=== PATIENT | female | born 1945 | race Caucasian/White ===

== ENCOUNTER 2016-06-18 13:52 | Observation (INO) | payer OTHER ==
--- NOTE | 2016-06-18 14:06 | EDPHY ---
H & P Time Seen by Provider: 06/18/16 14:04 HPI/ROS: CHIEF COMPLAINT: Chest heaviness HISTORY OF PRESENT ILLNESS: This 70-year-old woman had a complex left LAD stenting procedure last summer on November 12. She had an episode of chest heaviness about 2 weeks ago which lasted an hour and resolved. Today since she woke up this morning around 830 or 9 she had central chest heaviness associated with nausea and some shortness of breath with exertion which resolved after about an hour. She then went to [facility] with her daughter and the symptoms returned including shortness of breath with exertion and she presents to the emergency department. Currently her symptoms have resolved again. Symptoms are moderate and again worse with exertion. Did not radiate. REVIEW OF SYSTEMS: Eye: no change in vision ENT: no sore throat Cardiac: HPI Pulmonary: No cough or hemoptysis. Abdomen: no vomiting, diarrhea, abdominal pain, intermittent nausea over the last month. Musculoskeletal: no back pain Skin: no rash Neuro: Intermittent headaches over the past couple of months none presently. Constitutional: no fever : no urinary symptoms A comprehensive 10 point review of systems is otherwise negative aside from elements mentioned in the history of present illness. PAST MEDICAL HISTORY: Discharge summary dated 11/15/2015 personally reviewed by myself. Includes non-Q-wave myocardial infarction, percutaneous coronary intervention on 11/13/2015, hyperlipidemia, rheumatoid arthritis, hypertension. Social history: Family history of coronary disease. Nonsmoker. General Appearance: Alert and conversant, cooperative. Eyes: No scleral icterus. ENT, Mouth: Normal mucous membranes. Respiratory: Normal respiratory effort, breath sounds equal, lungs are clear to auscultation. Cardiovascular: Regular rate and rhythm. Gastrointestinal: Abdomen is soft and non tender. Neurological: Alert and oriented x3. Normally conversant. Face symmetric, normal movement and sensation in all extremities. Skin: Warm and dry, no rashes. Musculoskeletal: No peripheral edema and no joint swelling. No calf tenderness. Psychiatric: Not agitated. Emergency Department course/MDM: Patient took her Effient and aspirin already today so none is given in the emergency department. EKG does not show dynamic changes. Plan for chest x-ray, troponin, consultation with Dr. Landin her photoengraving apprentice. 1510: discussed with Mushtaq; troponin negative. 1520: Discussed with patient, no current chest heaviness, plan to admit at at Dr. Landin recommendation discussed with patient and consented. Smoking Status: Never smoked Constitutional: Initial Vital Signs Temperature (C) 36.4 C 06/18/16 13:58 Heart Rate 76 06/18/16 13:58 Respiratory Rate 16 06/18/16 13:58 Blood Pressure 134/89 H 06/18/16 13:58 O2 Sat (%) 97 06/18/16 13:58 O2 Delivery Mode Room Air Allergies/Adverse Reactions: No Known Allergies Allergy (Verified 06/18/16 14:09) Home Medications: Medication Instructions Recorded Aspirin [Aspirin 81mg (*)] 81 mg PO DAILY 11/13/15 Calcium [HI-RAMSES] 500 mg PO BID 11/13/15 Escitalopram Oxalate [Lexapro 10 10 mg PO DAILY 11/13/15 MG] Folic Acid [Folic Acid 1 MG (*)] 1 mg PO BID 11/13/15 Methotrexate Sodium [Rheumatrex] 20 mg PO SA 11/13/15 Nitroglycerin [Nitrostat 0.4 mg 0.4 mg SL Q5M PRN 11/13/15 (*)] Vit C/Vit E/Lutein/Min/[place]-3 1 each PO BID 11/13/15 [Ocuvite Softgel] predniSONE 5 mg PO DAILY PRN 11/13/15 valACYclovir [Valtrex (*)] 1,000 mg PO DAILY PRN 11/13/15 Atorvastatin Calcium [Lipitor 40 40 mg PO DAILY #0 tab 11/14/15 mg (*)] Prasugrel HCl [Effient 10mg (*)] 10 mg PO DAILY #0 tab 11/14/15 Lisinopril 10 mg PO DAILY #30 tablet 11/15/15 Metoprolol Succinate Xr [Toprol Xl 100 mg PO DAILY #30 tab.sr 11/15/15 100 mg (*)] Medical Decision Making - Diagnostics EKG Interpretation: 12-lead EKG interpreted by me; official reading is in trace master. My interpretation is sinus rhythm, no ischemic changes, normal. Imaging: Chest x-ray viewed by myself is normal. No cardiomegaly or CHF or pulmonary infiltrates. Differential Diagnosis: Differential diagnosis considered for chest pain including but not limited to myocardial ischemia, aortic dissection, pericarditis, pulmonary embolus, chest wall pain, pleural inflammation and pulmonary infectious causes. Consult/Admit Bed Type: [place] [id number] - Data Points Laboratory Results: Laboratory Results 06/18/16 14:15 06/18/16 14:15 06/18/16 06/18/16 14:15 14:15 WBC 7.01 10^3/uL 10^3/uL (3.80-9.50) RBC 4.40 10^6/uL 10^6/uL (4.18-5.33) Hgb 13.6 g/dL g/dL (12.6-16.3) Hct 40.8 % % (38.0-47.0) MCV 92.7 fL fL (81.5-99.8) MCH 30.9 pg pg (27.9-34.1) MCHC 33.3 g/dL g/dL (32.4-36.7) RDW 14.8 % % (11.5-15.2) Plt Count 353 10^3/uL 10^3/uL (150-400) MPV 9.8 fL fL (8.7-11.7) Neut % (Auto) 61.6 % % (39.3-74.2) Lymph % (Auto) 26.8 % % (15.0-45.0) [place] % (Auto) 8.7 % % (4.5-13.0) Eos % (Auto) 1.9 % % (0.6-7.6) Baso % (Auto) 0.7 % % (0.3-1.7) Nucleat RBC Rel Count 0.0 % % (0.0-0.2) Absolute Neuts (auto) 4.32 10^3/uL 10^3/uL (1.70-6.50) Absolute Lymphs (auto) 1.88 10^3/uL 10^3/uL (1.00-3.00) Absolute Monos (auto) 0.61 10^3/uL 10^3/uL (0.30-0.80) Absolute Eos (auto) 0.13 10^3/uL 10^3/uL (0.03-0.40) Absolute Basos (auto) 0.05 10^3/uL 10^3/uL (0.02-0.10) Absolute Nucleated RBC 0.00 10^3/uL 10^3/uL (0-0.01) Immature Gran % 0.3 % % (0.0-1.1) Immature Gran # 0.02 10^3/uL 10^3/uL (0.00-0.10) Sodium 141 mEq/L mEq/L (134-144) Potassium 4.2 mEq/L mEq/L (3.5-5.2) Chloride 102 mEq/L mEq/L (97-110) Carbon Dioxide 26 mEq/l mEq/l (22-31) Anion Gap 13 mEq/L mEq/L (8-16) BUN 13 mg/dL mg/dL (7-23) Creatinine 0.7 mg/dL mg/dL (0.6-1.0) Estimated GFR > 60 Glucose 93 mg/dL mg/dL (70-100) Calcium 10.0 mg/dL mg/dL (8.5-10.4) Troponin I < 0.012 ng/mL ng/mL (0-0.034) Departure - Departure Disposition: [facility] Inpatient Acute Clinical Impression: Chest pain Qualifiers: Chest pain type: unspecified Qualified Code(s): R07.9 - Chest pain, unspecified Condition: Good Referrals: Francine Snow MD [Primary Care Provider] - As per Instructions
--- NOTE | 2016-06-18 14:13 | CPEKG ---
Heart Rate: 56 RR Interval: 1071 P-R Interval: 144 QRSD Interval: 78 QT Interval: 408 QTC Interval: 394 P [place]: 56 QRS [place]: 0 T Wave [place]: 43 EKG Severity - NORMAL ECG - EKG Impression: SINUS RHYTHM Electronically Signed By: Elliott Hernandez 18-Jun-2016 14:20:39
[2016-06-18 14:27] LABS: % IMMATURE GRANULYOCYTES 0.3 % (0.0-1.1); ABSOLUTE IMMATURE GRANULOCYTES 0.02 10^3/uL (0.00-0.10); ADD DIFF? NO; ADD MORPH? NO; ADD SCAN? NO; ATYPICAL LYMPHOCYTE FLAG 0 (0-99); FRAGMENT RBC FLAG 0 (0-99); HEMATOCRIT 40.8 % (38.0-47.0); HEMOGLOBIN 13.6 g/dL (12.6-16.3); LEFT SHIFT FLG 0 (0-99); LIPEMIA HEMOLYSIS FLAG 80 (0-99); MEAN CELL HEMOGLOBIN 30.9 pg (27.9-34.1); MEAN CELL HEMOGLOBIN CONCENTR. 33.3 g/dL (32.4-36.7); MEAN CELL VOLUME 92.7 fL (81.5-99.8); MEAN PLATELET VOLUME 9.8 fL (8.7-11.7); PLATELET CLUMPS FLAG 0 (0-99); PLATELET COUNT 353 10^3/uL (150-400); RED CELL DISTRIBUTION WIDTH 14.8 % (11.5-15.2)
[2016-06-18 14:58] LABS: ANION GAP 13 mEq/L (8-16); CARBON DIOXIDE 26 mEq/l (22-31); CHLORIDE 102 mEq/L (97-110); CREATININE 0.7 mg/dL (0.6-1.0); GLOMERULAR FILTRATION RATE > 60; GLUCOSE 93 mg/dL (70-100); POTASSIUM 4.2 mEq/L (3.5-5.2); SODIUM 141 mEq/L (134-144)
[2016-06-18 15:09] LABS: TROPONIN I < 0.012 ng/mL (0-0.034)
[2016-06-18] MEDS ORDERED: ONDANSETRON DISINTEGRATING 4 MG TAB PO PRN (16:01)
[2016-06-18] MEDS ORDERED: ACETAMINOPHEN 325 MG TAB PO PRN (16:01)
[2016-06-18] MEDS ORDERED: NITROGLYCERIN 0.4 MG BTL SL PRN (16:01)
[2016-06-18] MEDS ORDERED: valACYclovir 500 MG TAB PO PRN (16:05)
--- NOTE | 2016-06-18 16:12 | PDGENHP ---
History and Physical - Chief Complaint Acute chest pain - History of Present Illness Primary care provider: Dr. Snow Primary auto electrical technician: Dr. Landin Primary director prison: Dr. Soriano HPI: 70-year-old female presenting with acute chest pain characterized as chest heaviness located in the central chest with onset of symptoms approximately 2 weeks ago and duration intermittent thereafter. She reports that the initial duration was approximately 1 hour and the symptoms were alleviated with rest. She reports that on the day of presentation they occurred twice and were associated with some nausea shortness of breath. They were exacerbated by exertion and alleviated with rest. She has been adherent to all of her home medications and still taking aspirin and prasugrel. She reports that her exercise tolerance has not recently been reduced but she also endorses that she has not been particularly physically active. She has recently had airline travel she denies any chest trauma. The character of the symptoms is similar to those experienced in October of 2015 when she experienced myocardial infarction but she reports they are of lesser severity. History Information - Allergies/Home Medication List Allergies/Adverse Reactions: No Known Allergies Allergy (Verified 06/18/16 14:09) Home Medications: Aspirin [Aspirin 81mg (*)] 81 mg PO DAILY 11/13/15 [Last Taken 06/18/16 08:00] Calcium [HI-RAMSES] 500 mg PO BID 11/13/15 [Last Taken 06/18/16 08:00] Escitalopram Oxalate [Lexapro 10 MG] 10 mg PO DAILY 11/13/15 [Last Taken 08:00] Folic Acid [Folic Acid 1 MG (*)] 1 mg PO BID 11/13/15 [Last Taken 06/18/16 08:00 ] Methotrexate Sodium [Rheumatrex] 20 mg PO SA 11/13/15 [Last Taken 06/13/16] Nitroglycerin [Nitrostat 0.4 mg (*)] 0.4 mg SL Q5M PRN 11/13/15 [Last Taken Unknown] Vit C/Vit E/Lutein/Min/[place]-3 [Ocuvite Softgel] 1 each PO BID 11/13/15 [Last Taken 06/18/16 08:00] predniSONE 5 mg PO DAILY PRN 11/13/15 [Last Taken 08/23/15] valACYclovir [Valtrex (*)] 1,000 mg PO DAILY PRN 11/13/15 [Last Taken Unknown] Losartan Potassium [Cozaar 25 mg (*)] 25 mg PO DAILY 06/18/16 [Last Taken 08:00] Multivitamins [Multivitamin (*)] 1 each PO DAILY 06/18/16 [Last Taken 06/18/16] I have personally reviewed and updated: family history, medical history, social history, surgical history - Past Medical History coronary artery disease (With non-Q-wave myocardial infarction in October 2015, stents placed to the diagonal and LAD), hypertension, hyperlipidemia Additional medical history: Rheumatoid arthritis on methotrexate and intermittently as needed prednisone - Surgical History Reports: no pertinent surgical hx - Family History Additional family history: Patient's grandson has recently had a GI illness and she has had extensive contact with him - Social History Smoking Status: Never smoked Alcohol Use: None Drug Use: None Additional social history: Ambulatory, does not physically exert herself Review of Systems ROS: 10pt was reviewed & negative except for what was stated in HPI & below Cardiac: Reports: chest pain Respiratory: Reports: shortness of breath Gastrointestinal: Reports: nausea Physical Exam Temp Pulse Resp BP Pulse Ox 36.4 C 76 16 134/89 H 97 06/18/16 13:58 06/18/16 13:58 06/18/16 13:58 06/18/16 13:58 06/18/16 13:58 Constitutional: no apparent distress, appears nourished, not in pain Eyes: PERRL, anicteric sclera, EOMI Ears, Nose, Mouth, Throat: moist mucous membranes, hearing normal, ears appear normal, no oral mucosal ulcers Cardiovascular: regular rate and rhythym, no murmur, rub, or gallop, No edema Respiratory: no respiratory distress, no rales or rhonchi, clear to auscultation Gastrointestinal: normoactive bowel sounds, soft, non-tender abdomen, no palpable masses Genitourinary: no bladder fullness, no bladder tenderness Skin: other (Non raised erythema on her back which is blanchable, not indurated or tender) Musculoskeletal: other (Full range of motion left shoulder without any pain, no tenderness over the sub AC or rotator cuff area, no tenderness to palpation over the left pectoralis muscle) Neurologic: AAOx3, sensation intact bilaterally Psychiatric: interacting appropriately, not anxious, not encephalopathic, thought process linear Lab Data & Imaging Review 06/18/16 14:15 06/18/16 14:15 WBC 7.01 10^3/uL (3.80-9.50) 06/18/16 14:15 RBC 4.40 10^6/uL (4.18-5.33) 06/18/16 14:15 Hgb 13.6 g/dL (12.6-16.3) 06/18/16 14:15 Hct 40.8 % (38.0-47.0) 06/18/16 14:15 MCV 92.7 fL (81.5-99.8) 06/18/16 14:15 MCH 30.9 pg (27.9-34.1) 06/18/16 14:15 MCHC 33.3 g/dL (32.4-36.7) 06/18/16 14:15 RDW 14.8 % (11.5-15.2) 06/18/16 14:15 Plt Count 353 10^3/uL (150-400) 06/18/16 14:15 MPV 9.8 fL (8.7-11.7) 06/18/16 14:15 Neut % (Auto) 61.6 % (39.3-74.2) 06/18/16 14:15 Lymph % (Auto) 26.8 % (15.0-45.0) 06/18/16 14:15 [place] % (Auto) 8.7 % (4.5-13.0) 06/18/16 14:15 Eos % (Auto) 1.9 % (0.6-7.6) 06/18/16 14:15 Baso % (Auto) 0.7 % (0.3-1.7) 06/18/16 14:15 Nucleat RBC Rel Count 0.0 % (0.0-0.2) 06/18/16 14:15 Absolute Neuts (auto) 4.32 10^3/uL (1.70-6.50) 06/18/16 14:15 Absolute Lymphs (auto) 1.88 10^3/uL (1.00-3.00) 06/18/16 14:15 Absolute Monos (auto) 0.61 10^3/uL (0.30-0.80) 06/18/16 14:15 Absolute Eos (auto) 0.13 10^3/uL (0.03-0.40) 06/18/16 14:15 Absolute Basos (auto) 0.05 10^3/uL (0.02-0.10) 06/18/16 14:15 Absolute Nucleated RBC 0.00 10^3/uL (0-0.01) 06/18/16 14:15 Immature Gran % 0.3 % (0.0-1.1) 06/18/16 14:15 Immature Gran # 0.02 10^3/uL (0.00-0.10) 06/18/16 14:15 Sodium 141 mEq/L (134-144) 06/18/16 14:15 Potassium 4.2 mEq/L (3.5-5.2) 06/18/16 14:15 Chloride 102 mEq/L (97-110) 06/18/16 14:15 Carbon Dioxide 26 mEq/l (22-31) 06/18/16 14:15 Anion Gap 13 mEq/L (8-16) 06/18/16 14:15 BUN 13 mg/dL (7-23) 06/18/16 14:15 Creatinine 0.7 mg/dL (0.6-1.0) 06/18/16 14:15 Estimated GFR > 60 06/18/16 14:15 Glucose 93 mg/dL (70-100) 06/18/16 14:15 Calcium 10.0 mg/dL (8.5-10.4) 06/18/16 14:15 Troponin I < 0.012 ng/mL (0-0.034) 06/18/16 14:15 Visualized and Interpreted Chest x-ray results: Yes Chest X-Ray results: no infiltrate Visualized and Interpreted EKG results: Yes EKG Interpretation: Positive for: other (Q-wave in lead 3, normal sinus rhythm) Assessment & Plan Assessment: 70-year-old female presents with acute chest pain in the setting of known coronary artery disease Plan: 1. Chest pain. Acute, new problem this provider, further workup indicated. Potential etiologies include acute coronary syndrome versus pulmonary embolism versus atypical cause. Given patient's significant history for coronary artery disease, further cardiac risk stratification is indicated. -reviewed outside records including 11/13/2015 cardiac catheterization demonstrating 4 drug-eluting stents placed in the LAD and diagonal with ejection fraction of 50% and approximately 50% stenosis in the RCA with minimal stenosis in the left circumflex -cycle cardiac enzymes -monitor on telemetry -check D-dimer -continue aspirin, statin, prasugrel, beta-cathryn -if she experiences recurrence of chest discomfort or escalating severity, utilize sublingual nitroglycerin and morphine -if cardiac enzymes remain negative, plan on EKG treadmill stress test in a.m. -discussed with Dr. Hernandez, he reports to me that he has consulted with Dr. Landin and he will consult on the patient and further direct risk stratification 2. Coronary artery disease. Chronic, continue patient's home medications, places patient at significantly high risk for acute coronary syndrome given her known RCA and small vessel disease 3. Hypertension. Chronic, continue patient's home medications 4. Rheumatoid arthritis. No evidence of acute flare, continue methotrexate once weekly, Tylenol as needed for pain, does not utilize nonsteroidal anti- inflammatory medications Diet. Cardiac diet, NPO in a.m. Prophylaxis. Moderate risk patient, Lovenox 40 Code. Full Disposition. Anticipated discharge is 06/19/2016, pending further workup as outlined above.
--- NOTE | 2016-06-18 17:22 | PDCARCONS ---
Cardiology Consult Reason for Consult: Chest pain Chief Complaint: Chest pain Requesting Physician: Dr. Dietz History of Present Illness: 70 year-old female known to our practice for history of severe exertional intolerance as anginal equivalent, CAD s/p LAD/diag bifurcation stenting in October 2015, hyperlipidemia, rheumatoid arthritis who called our office today complaining of chest discomfort reminiscent of prior anginal symptoms. Her symptoms have intermittent over the past 4-6 weeks while living in [place]; however she woke up this morning with moderate intensity chest tightness worse usual. It was accompanied by mild radiation to the back in a through-and- through pattern. Her symptoms gradually subsided but she continued to feel overall poor due to fatigue and otherwise vague symptoms. She went to [facility] with her daughter around noon and while walking around she became more short of breath and her chest tightness returned. In addition, over the past 4-6 weeks she has had intermittent nausea she associates with symptoms leading up to her stents this past October. She denies any presyncope, syncope, or diaphoresis. She returned from [place] on 06/09/16 by plane and denies any calf pain, shortness of breath, or racing heart beats. She states that her BP has been well- controlled on her home cuff and with recent doctor's visits. She continues to have mild chest tightness while resting in the ED. She complains of headache as well. BP is 179/94 mmHg. Her EKG shows sinus bradycardia at 56 bpm, normal QRS axis and intervals, no acute ischemic changes. CBC, chemistry panel, D-dimer, and initial troponin are all normal. We are asked by hospitalist service to consult on Mrs. Hazel and advise on further risk stratification. History Information - Allergies/Home Medication List Allergies/Adverse Reactions: No Known Allergies Allergy (Verified 06/18/16 14:09) Home Medications: Aspirin [Aspirin 81mg (*)] 81 mg PO DAILY 11/13/15 [Last Taken 06/18/16 08:00] Calcium [HI-RAMSES] 500 mg PO BID 11/13/15 [Last Taken 06/18/16 08:00] Escitalopram Oxalate [Lexapro 10 MG] 10 mg PO DAILY 11/13/15 [Last Taken 08:00] Folic Acid [Folic Acid 1 MG (*)] 1 mg PO BID 07/20/16 [Last Taken 06/18/16 08:00 ] Methotrexate Sodium [Rheumatrex] 20 mg PO SA 11/13/15 [Last Taken 06/13/16] Nitroglycerin [Nitrostat 0.4 mg (*)] 0.4 mg SL Q5M PRN 11/13/15 [Last Taken Unknown] Vit C/Vit E/Lutein/Min/[place]-3 [Ocuvite Softgel] 1 each PO BID 11/13/15 [Last Taken 06/18/16 08:00] predniSONE 5 mg PO DAILY PRN 11/13/15 [Last Taken 08/23/15] valACYclovir [Valtrex (*)] 1,000 mg PO DAILY PRN 11/13/15 [Last Taken Unknown] Losartan Potassium [Cozaar 25 mg (*)] 25 mg PO DAILY 06/18/16 [Last Taken 08:00] Multivitamins [Multivitamin (*)] 1 each PO DAILY 06/18/16 [Last Taken 06/18/16] - Social History Smoking Status: Never smoked Alcohol Use: None Drug Use: None Cardiac History - Cardiac History Past Cardiac History: CAD, PCI Cardiac Risk Factors: hypertension (>140/90), lipidemia, age > 65 Physical Exam Temp Pulse Resp BP Pulse Ox 36.6 C 59 L 16 179/84 H 97 06/18/16 16:15 06/18/16 16:15 06/18/16 16:15 06/18/16 16:15 06/18/16 16:15 Constitutional: no apparent distress, appears nourished, not in pain Cardiovascular: regular rate and rhythym, no murmur, rub, or gallop, other (+S4) , No systolic murmur, No edema Respiratory: no respiratory distress, no rales or rhonchi, clear to auscultation Gastrointestinal: normoactive bowel sounds, soft, non-tender abdomen, no palpable masses Skin: warm, normal color, no rashes or abrasions, no fluctuance, no induration, No mottled Neurologic: AAOx3, sensation intact bilaterally, weakness Psychiatric: interacting appropriately, not anxious, not encephalopathic, thought process linear Lab and Imaging 06/18/16 14:15 06/18/16 14:15 WBC 7.01 10^3/uL (3.80-9.50) 06/18/16 14:15 RBC 4.40 10^6/uL (4.18-5.33) 06/18/16 14:15 Hgb 13.6 g/dL (12.6-16.3) 06/18/16 14:15 Hct 40.8 % (38.0-47.0) 06/18/16 14:15 MCV 92.7 fL (81.5-99.8) 06/18/16 14:15 MCH 30.9 pg (27.9-34.1) 06/18/16 14:15 MCHC 33.3 g/dL (32.4-36.7) 06/18/16 14:15 RDW 14.8 % (11.5-15.2) 06/18/16 14:15 Plt Count 353 10^3/uL (150-400) 06/18/16 14:15 MPV 9.8 fL (8.7-11.7) 06/18/16 14:15 Neut % (Auto) 61.6 % (39.3-74.2) 06/18/16 14:15 Lymph % (Auto) 26.8 % (15.0-45.0) 06/18/16 14:15 [place] % (Auto) 8.7 % (4.5-13.0) 06/18/16 14:15 Eos % (Auto) 1.9 % (0.6-7.6) 06/18/16 14:15 Baso % (Auto) 0.7 % (0.3-1.7) 06/18/16 14:15 Nucleat RBC Rel Count 0.0 % (0.0-0.2) 06/18/16 14:15 Absolute Neuts (auto) 4.32 10^3/uL (1.70-6.50) 06/18/16 14:15 Absolute Lymphs (auto) 1.88 10^3/uL (1.00-3.00) 06/18/16 14:15 Absolute Monos (auto) 0.61 10^3/uL (0.30-0.80) 06/18/16 14:15 Absolute Eos (auto) 0.13 10^3/uL (0.03-0.40) 06/18/16 14:15 Absolute Basos (auto) 0.05 10^3/uL (0.02-0.10) 06/18/16 14:15 Absolute Nucleated RBC 0.00 10^3/uL (0-0.01) 06/18/16 14:15 Immature Gran % 0.3 % (0.0-1.1) 06/18/16 14:15 Immature Gran # 0.02 10^3/uL (0.00-0.10) 06/18/16 14:15 D-Dimer 0.38 ug/mLFEU (0.00-0.50) 06/18/16 14:15 Sodium 141 mEq/L (134-144) 06/18/16 14:15 Potassium 4.2 mEq/L (3.5-5.2) 06/18/16 14:15 Chloride 102 mEq/L (97-110) 06/18/16 14:15 Carbon Dioxide 26 mEq/l (22-31) 06/18/16 14:15 Anion Gap 13 mEq/L (8-16) 06/18/16 14:15 BUN 13 mg/dL (7-23) 06/18/16 14:15 Creatinine 0.7 mg/dL (0.6-1.0) 06/18/16 14:15 Estimated GFR > 60 06/18/16 14:15 Glucose 93 mg/dL (70-100) 06/18/16 14:15 Calcium 10.0 mg/dL (8.5-10.4) 06/18/16 14:15 Troponin I < 0.012 ng/mL (0-0.034) 06/18/16 14:15 A/P Assessment: 1. High suspicion for unstable angina, class III-IV. Symptoms are consistent with prior anginal symptoms leading up PCI in October 2015. 2. CAD s/p DESx4 in LAD and diag by [place] technique. She remains on DAPT with aspirin and Effient. She is an ultrarapid Plavix metabolizer. 3. Hyperlipidemia. Well-controlled on atorvastatin 40 mg/d. 4. Rheumatoid arthritis treated w/ once-weekly methotrexate. 5. Uncontrolled HTN. Normally well-controlled on current med regimen. 6. History of KAMLESH cough. Plan: 1. Keep NPO after midnight. 2. Continue to cycle serial cardiac enzymes and 12 lead EKGs. 3. DC nuclear stress test. Due to symptoms mimicking prior anginal symptoms there is high suspicion for stent restenosis vs. de mehnaz stenotic lesion in which case coronary angiography is recommended. 4. Left heart catheterization tomorrow. Dr. Landin to arrange with laboratory associate. 5. Start amlodipine 5 mg, first dose now.
[2016-06-18] MEDS: amLODIPine BESYLATE 5 MG TAB PO SCH (18:58)
[2016-06-18] MEDS ORDERED: VIT E PO SCH (21:00)
[2016-06-18] MEDS ORDERED: VIT C PO SCH (21:00)
[2016-06-18] MEDS ORDERED: LUTEIN PO SCH (21:00)
[2016-06-18] MEDS ORDERED: OMEGA PO SCH (21:00)
[2016-06-18] MEDS: CALCIUM CARBONATE 500 MG TAB PO SCH (21:34)
[2016-06-18] MEDS: FOLIC ACID 1 MG TAB PO SCH (21:35)
[2016-06-18] MEDS: ENOXAPARIN 40 MG/0.4 ML SYR SC SCH (21:59)
[2016-06-19 06:35] LABS: % IMMATURE GRANULYOCYTES 0.1 % (0.0-1.1); ABSOLUTE IMMATURE GRANULOCYTES 0.01 10^3/uL (0.00-0.10); ADD DIFF? NO; ADD MORPH? NO; ADD SCAN? NO; ATYPICAL LYMPHOCYTE FLAG 10 (0-99); FRAGMENT RBC FLAG 0 (0-99); HEMATOCRIT 37.7 % (38.0-47.0); HEMOGLOBIN 12.6 g/dL (12.6-16.3); LEFT SHIFT FLG 0 (0-99); LIPEMIA HEMOLYSIS FLAG 80 (0-99); MEAN CELL HEMOGLOBIN 30.9 pg (27.9-34.1); MEAN CELL HEMOGLOBIN CONCENTR. 33.4 g/dL (32.4-36.7); MEAN CELL VOLUME 92.4 fL (81.5-99.8); MEAN PLATELET VOLUME 9.7 fL (8.7-11.7); PLATELET CLUMPS FLAG 0 (0-99); PLATELET COUNT 303 10^3/uL (150-400); RED BLOOD CELL COUNT 4.08 10^6/uL (4.18-5.33); RED CELL DISTRIBUTION WIDTH 14.9 % (11.5-15.2)
[2016-06-19 06:38] LABS: APTT 27.9 SEC (23.0-38.0); INR 0.99 (0.83-1.16)
[2016-06-19] MEDS ORDERED: ASPIRIN EC 325 MG TAB PO ONE (07:00)
[2016-06-19] MEDS ORDERED: diphenhydrAMINE 25 MG CAP PO ONE (07:00)
[2016-06-19] MEDS ORDERED: TEMAZEPAM 15 MG CAP PO PRN (07:00)
[2016-06-19] MEDS ORDERED: DIAZEPAM 5 MG TAB PO ONE (07:00)
[2016-06-19] MEDS ORDERED: NITROGLYCERIN 0.4 MG BTL SL PRN (07:00)
[2016-06-19] MEDS ORDERED: ACETAMINOPHEN 325 MG TAB PO PRN (07:00)
[2016-06-19 07:11] LABS: ALANINE AMINOTRANSFERASE 37 IU/L (9-52); ALKALINE PHOSPHATASE 70 IU/L (38-126); ANION GAP 8 mEq/L (8-16); ASPARTATE AMINOTRANSFERASE 30 IU/L (14-46); BILIRUBIN,TOTAL 0.7 mg/dL (0.1-1.4); CALCIUM 9.7 mg/dL (8.5-10.4); CARBON DIOXIDE 27 mEq/l (22-31); CHLORIDE 104 mEq/L (97-110); CREATININE 0.7 mg/dL (0.6-1.0); GLOMERULAR FILTRATION RATE > 60; GLUCOSE 95 mg/dL (70-100); POTASSIUM 4.4 mEq/L (3.5-5.2); SODIUM 139 mEq/L (134-144); TOTAL PROTEIN 7.3 g/dL (6.3-8.2)
[2016-06-19 07:22] LABS: TROPONIN I 0.035 ng/mL (0-0.034)
[2016-06-19 07:38] VITALS: RESP 15
[2016-06-19] MEDS ORDERED: PRESERVISION AREDS2 FORMULA EYE VIT 1 EACH PO SCH (08:00)
[2016-06-19] MEDS ORDERED: MULTIVITAMINS 1 EACH TAB PO SCH (09:00)
[2016-06-19] MEDS ORDERED: METOPROLOL SUCCINATE XR 100 MG TAB PO SCH (09:00)
[2016-06-19] MEDS ORDERED: ESCITALOPRAM OXALATE 10 MG TAB PO SCH (09:00)
[2016-06-19] MEDS ORDERED: ATORVASTATIN CALCIUM 40 MG TAB PO SCH (09:00)
[2016-06-19] MEDS ORDERED: PRASUGREL HCL 10 MG TAB PO SCH (09:00)
[2016-06-19] MEDS ORDERED: LOSARTAN POTASSIUM 25 MG TAB PO SCH (09:00)
[2016-06-19] MEDS ORDERED: ASPIRIN 81 MG CHEWABLE TAB PO SCH (09:00)
[2016-06-19 11:24] VITALS: BP 132/77; PULSE 66; TEMP 97.3; O2SAT 95
[2016-06-19] MEDS: amLODIPine BESYLATE 5 MG TAB PO SCH (11:26)
[2016-06-19] MEDS: CALCIUM CARBONATE 500 MG TAB PO SCH (11:26)
[2016-06-19] MEDS: ENOXAPARIN 40 MG/0.4 ML SYR SC SCH (11:27)
[2016-06-19] MEDS: FOLIC ACID 1 MG TAB PO SCH (11:27)
[2016-06-19] MEDS ORDERED: LIDOCAINE 1% 30 ML SDV ONE (13:43)
[2016-06-19] MEDS ORDERED: fentaNYL 100 MCG/2 ML INJ ONE (13:44)
[2016-06-19] MEDS ORDERED: MIDAZOLAM 2 MG/2 ML VIAL ONE (13:44)
[2016-06-19] MEDS ORDERED: VERAPAMIL 5 MG/2 ML VIAL ONE (13:44)
[2016-06-19] MEDS ORDERED: HEPARIN 10,000 UNIT/10 ML MDV ONE (13:44)
[2016-06-19] MEDS ORDERED: IOPAMIDOL (ISOVUE-370) 150 ML BTL IV ONE (13:45)
--- NOTE | 2016-06-19 14:22 | SUROPNOTE ---
[facility] Operative Report - Surgery Date of Procedure: 06/19/16 Indication: This patient is a 70 year old woman, with known coronary artery disease s/p LAD/diagonal bifurcation stenting in October 2015, hyperlipidemia, and rheumatoid arthritis, presenting with 4-6 weeks of intermittent chest tightness , similar to her previous anginal symptoms. It is associated with fatigue and nausea. She was admitted to the hospital yesterday with resting chest discomfort in the emergency department. No stress testing was performed secondary to resting chest discomfort. Left heart catheterization indicated secondary to [place] cardiovascular class IV. Procedures performed: 1. Left heart catheterization with left ventricular and selective coronary angiography. Description of procedure: Description, risks, benefits and alternatives were discussed in detail. Informed consent was obtained. The patient was brought to the catheterization laboratory where a timeout was performed. The right wrist was sterilely prepped and draped. 2% lidocaine utilized for local anesthetic. A 5/6-Czech slender hemostatic sheath placed right radial artery utilizing micropuncture technique. Intraarterial verapamil and intravenous heparin was administered. Diagnostic coronary angiography performed with 5-Czech, Lottie left-3.5 and Lottie right -4 catheter. All catheters were passed over a 0.035 guidewire. Pigtail catheter was then utilized for left heart catheterization and left ventricular angiography. Arterial sheath was removed and TR band was placed. Findings: 1. Hemodynamics: Aortic pressure 115/60, mean of 79, left ventricular pressure 126/5/21 end-diastolic. There was no significant pull back gradient across the aortic valve. 2. Left ventricle: The left ventricle appears normal in size. Left ventricle is normal shape. Segmental wall motion is abnormal with very mild anterior hypokinesis and an ejection fraction of 55%. There are no filling defects or significant mitral regurgitation. The aortic root and ascending aorta appears normal, there is no dissection or aneurysm formation. 3. Coronary angiography: Left main: The left main is a moderately large bifurcating vessel. There is no evidence of coronary disease within the left main. 4. Left anterior descending: This is a moderately large vessel continuing around the apex, which gives rise to a proximal and mid diagonal branch. The first diagonal branch contains a widely patent proximal stent. The left anterior descending contains proximal and mid stents, which are widely patient. There is a septal branch in the mid LAD which is in "stent prison". 5. Circumflex: The circumflex gives rise to a large obtuse marginal branch. Minimal coronary artery disease. 6. Right coronary: This is a moderately large, dominant vessel with a larger posterior descending and a moderate multi-branching posterolateral. There is up to 50% right coronary stenosis near the crux, but no critical lesions. Overall Impression: 1. Non-obstructive coronary artery disease, with widely patent LAD and diagonal stents. 2. Very mild left ventricular anterior hypokinesis and an ejection fraction of 55%. 3. No cardiac source of chest discomfort identified. Plan: 1. Further workup for non-cardiac etiologies of chest discomfort. 2. Continue aggressive risk modification and high dose statin therapy. Portions of this report were documented by a medical reimbursement manager. I have reviewed this report and agree with the documentation. Report scribed for Dr. Ruben Landin. Report scribed by Loree Yi.
[2016-06-19] MEDS ORDERED: ATROPINE SULFATE 1 MG/10 ML SYR IVP PRN (15:33)
[2016-06-19] MEDS ORDERED: OXYCODONE/APAP 5/325 TAB PO PRN (15:33)
[2016-06-19] MEDS ORDERED: ONDANSETRON 4 MG/2 ML VIAL IVP PRN (15:33)
[2016-06-19] MEDS ORDERED: HYDROCODONE/APAP 5/325 TAB PO PRN (15:33)
--- NOTE | 2016-06-19 16:04 | HOSPPROG ---
Hospitalist Progress Note Assessment/Plan: 70 yo f a cad here w cp ;cath w patent stents home today see dc summary Subjective: neg cath Objective: Vital Signs Temp Pulse Resp BP Pulse Ox 36.3 C 66 15 132/77 H 95 06/19/16 11:23 06/19/16 11:23 06/19/16 11:23 06/19/16 11:23 06/19/16 11:23 Laboratory Results 06/19/16 06:05 06/19/16 06:05 PT 13.0 SEC (12.0-15.0) 06/19/16 06:05 INR 0.99 (0.83-1.16) 06/19/16 06:05 - Physical Exam Constitutional: no apparent distress, appears nourished Eyes: PERRL, anicteric sclera Ears, Nose, Mouth, Throat: moist mucous membranes, hearing normal Cardiovascular: regular rate and rhythym, no murmur, rub, or gallop Respiratory: no respiratory distress, no rales or rhonchi Gastrointestinal: normoactive bowel sounds, soft, non-tender abdomen Genitourinary: No mina in urethra Skin: warm, normal color Musculoskeletal: full muscle strength Neurologic: AAOx3 ICD10 Worksheet Patient Problems: Problems Problem Status Onset Chest pain Acute Acute coronary syndrome Acute Coronary arteriosclerosis after percutaneous transluminal coronary angioplasty ( PTCA) Acute Hyperlipidemia Acute Hypertension Acute
--- NOTE | 2016-06-19 17:34 | GDS ---
DISCHARGE DIAGNOSES: 1. Coronary disease. 2. Chest pain with positive troponin thought secondary to subendocardial ischemia from hypertension . 3. Hypertension. 4. Rheumatoid arthritis. HOSPITAL COURSE: Please see admission history and physical by Dr. Leander Dietz. Patient presented w ith chest pain. She had a negative D-dimer and nonischemic EKG. Her troponin became positive. Her instrument lens generator, Dr. Landin, took her to the seed laboratory assistant which showed patent stents, focal wall motion a bnormality in the anterior septum which is consistent with previous echocardiogram done in October. Her troponin did peak at 0.035. This is likely secondary as she was hypertensive while here. She h ad nonobstructive coronary disease, widely patent LAD, and diagonal stents. Her medication regimen includes a statin, an aspirin, a beta-cathryn, and Prasugrel. She is discharged home on unchanged m edication regimen. /[id number]/MODL
== END 2016-06-19 18:25 | disposition home or self-care (01) ==
LOC: F1N 18:17
PROVIDERS: ADMIT Internal Medicine; ATTEND Internal Medicine
PROC: B2111ZZ Fluoroscopy of Multiple Coronary Arteries using Low Osmolar Contrast (ICD-10-PCS; principal; 2016-06-18)
PROC: 4A023N7 Measurement of Cardiac Sampling and Pressure, Left Heart, Percutaneous Approach (ICD-10-PCS; principal; 2016-06-18)
PROC: B2151ZZ Fluoroscopy of Left Heart using Low Osmolar Contrast (ICD-10-PCS; principal; 2016-06-18)
DX: I25.89 Other forms of chronic ischemic heart disease (principal); I10 Essential (primary) hypertension; I25.10 Atherosclerotic heart disease of native coronary artery without angina pectoris; M06.9 Rheumatoid arthritis, unspecified; E78.5 Hyperlipidemia, unspecified; Z82.49 Family history of ischemic heart disease and other diseases of the circulatory system; Z95.5 Presence of coronary angioplasty implant and graft
CPT/HCPCS: 71020; 93005; 93458; G0378; J1644; J2250; J2405; J3010; Q9967

== ENCOUNTER 2016-12-30 12:20 | Day surgery (SDC) | payer OTHER ==
[2016-12-30] MEDS ORDERED: NITROGLYCERIN 0.4 MG BTL SL PRN (12:26)
[2016-12-30] MEDS ORDERED: diphenhydrAMINE 25 MG CAP PO ONE (12:26)
[2016-12-30] MEDS ORDERED: ACETAMINOPHEN 325 MG TAB PO PRN (12:26)
[2016-12-30] MEDS ORDERED: DIAZEPAM 5 MG TAB PO ONE (12:26)
[2016-12-30] MEDS ORDERED: FAMOTIDINE 20 MG TAB PO ONE (12:26)
[2016-12-30] MEDS ORDERED: ASPIRIN EC 325 MG TAB PO ONE (12:26)
[2016-12-30] MEDS ORDERED: TEMAZEPAM 15 MG CAP PO PRN (12:26)
--- NOTE | 2016-12-30 12:58 | CPEKG ---
Heart Rate: 58 RR Interval: 1034 P-R Interval: 160 QRSD Interval: 76 QT Interval: 428 QTC Interval: 421 P Marlin: 6 QRS Marlin: 71 T Wave Marlin: 35 EKG Severity - NORMAL ECG - EKG Impression: SINUS RHYTHM Electronically Signed By: Linda Gregory 30-Dec-2016 19:36:14
[2016-12-30 13:11] LABS: % IMMATURE GRANULYOCYTES 0.4 % (0.0-1.1); ABSOLUTE IMMATURE GRANULOCYTES 0.03 10^3/uL (0.00-0.10); ADD DIFF? NO; ADD MORPH? NO; ADD SCAN? NO; ATYPICAL LYMPHOCYTE FLAG 0 (0-99); FRAGMENT RBC FLAG 0 (0-99); HEMATOCRIT 40.5 % (38.0-47.0); HEMOGLOBIN 13.4 g/dL (12.6-16.3); LEFT SHIFT FLG 0 (0-99); LIPEMIA HEMOLYSIS FLAG 80 (0-99); MEAN CELL HEMOGLOBIN CONCENTR. 33.1 g/dL (32.4-36.7); MEAN CELL VOLUME 90.6 fL (81.5-99.8); MEAN PLATELET VOLUME 9.7 fL (8.7-11.7); PLATELET CLUMPS FLAG 30 (0-99); PLATELET COUNT 300 10^3/uL (150-400); RED BLOOD CELL COUNT 4.47 10^6/uL (4.18-5.33)
[2016-12-30 13:20] LABS: INR 0.96 (0.83-1.16); PROTIME(PATIENT) 12.7 SEC (12.0-15.0)
[2016-12-30 13:21] LABS: APTT 27.4 SEC (23.0-38.0)
[2016-12-30 13:27] LABS: ANION GAP 9 mEq/L (8-16); CALCIUM 9.9 mg/dL (8.5-10.4); CARBON DIOXIDE 24 mEq/l (22-31); CHLORIDE 104 mEq/L (97-110); CHOLESTEROL 161 mg/dL (140-220); CHOLESTEROL/HDL RATIO 2.27 RATIO (1.00-4.44); CREATININE 0.8 mg/dL (0.6-1.0); GLOMERULAR FILTRATION RATE > 60; GLUCOSE 87 mg/dL (70-100); HIGH DENSITY LIPOPROTEIN 71 mg/dL (40-85); LOW DENSITY LIPOPROTEIN 57 mg/dL (80-100); NON-HIGH DENSITY LIPOPROTEIN 90 mg/dL (90-129); POTASSIUM 4.2 mEq/L (3.5-5.2); SODIUM 137 mEq/L (134-144); TRIGLYCERIDE 167 mg/dL (35-135); VERY LOW DENSITY LIPOPROTEINS 33 mg/dL (8-25)
[2016-12-30] MEDS ORDERED: IOPAMIDOL (ISOVUE-370) 150 ML BTL IV ONE (13:29)
[2016-12-30] MEDS ORDERED: LIDOCAINE 1% 300 MG/30 ML SDV ONE (13:29)
[2016-12-30] MEDS ORDERED: fentaNYL 100 MCG/2 ML INJ ONE (13:29)
[2016-12-30] MEDS ORDERED: MIDAZOLAM 2 MG/2 ML VIAL ONE (13:29)
--- NOTE | 2016-12-30 13:41 | PDHPUP ---
History & Physical Update H&P update statement: This history and physical update is based on an assessment of the patient which was completed after admission or registration (within 24 hours), but prior to the surgery/procedure. H&P update: H&P reviewed & patient examined, no change in patient's condition since H&P completed
--- NOTE | 2016-12-30 13:42 | PDPROPOC ---
Sedation Plan of Care Sedation Plan of Care: vital signs stable, mental status noted, patient educated of risks, benefits, alternatives, patient can tolerate sedation ASA Classification: ASA 2 Planned drugs: fentanyl, midazolam Mallampati Score: Class 1 Mallampati Reference Image: Patient passed 3-3-2 rule?: Yes
[2016-12-30] MEDS ORDERED: ATROPINE SULFATE 1 MG/10 ML SYR IVP PRN (14:53)
[2016-12-30] MEDS ORDERED: ONDANSETRON 4 MG/2 ML VIAL IVP PRN (14:53)
--- NOTE | 2016-12-30 14:59 | PDDXCAT ---
Diagnostic Cath Note - . Date: 12/30/16 Controls Operator Molded Goods: Other (Christiano Roman MD) Indication: other (Anginal equivalent of nausea. ) - Procedure Access: right groin Procedure: left heart catheterization, coronary angiography - Materials Left Heart Cath size: 6F Left Heart Cath materials: standard multipack (JL4, JR4, pigtail) - Findings-Left Heart Catheterization LM: Normal LAD: Patent stent to the proximal and mid LAD, patent stent to D1 LCX: Normal RCA: Dominant. Normal. EDP: 16 mmHg LVEF: 60-65% Wall motion: Normal wall motion. Complications: none Estimated blood loss: <50ml Closure method: Angioseal Assessment: 1. Patent stent to the LAD and D1. 2. Normal LCX and RCA. 3. Normal LVEF 60-65% Plan: 1. Continue current medical therapy 2. Follow up in the office 2-3 weeks 3. consider referral to GI regarding symptoms of nausea Intervention: none Patient Problems: Problems Problem Status Onset Acute coronary syndrome Acute Chest pain Acute Coronary arteriosclerosis after percutaneous transluminal coronary angioplasty ( PTCA) Acute Hyperlipidemia Acute Hypertension Acute
== END 2016-12-30 18:11 | disposition home or self-care (01) ==
LOC: FCATH 12:20
PROVIDERS: ATTEND Internal Medicine Cardiovascular Disease
PROC: 4A023N7 Measurement of Cardiac Sampling and Pressure, Left Heart, Percutaneous Approach (ICD-10-PCS; principal; 2016-12-30)
PROC: B2111ZZ Fluoroscopy of Multiple Coronary Arteries using Low Osmolar Contrast (ICD-10-PCS; principal; 2016-12-30)
PROC: B2151ZZ Fluoroscopy of Left Heart using Low Osmolar Contrast (ICD-10-PCS; principal; 2016-12-30)
DX: R11.0 Nausea (principal); R94.39 Abnormal result of other cardiovascular function study; I25.10 Atherosclerotic heart disease of native coronary artery without angina pectoris; I10 Essential (primary) hypertension; E78.5 Hyperlipidemia, unspecified; Z95.5 Presence of coronary angioplasty implant and graft; Z82.49 Family history of ischemic heart disease and other diseases of the circulatory system
CPT/HCPCS: C1760; J1644; J2250; J3010; Q9967

== ENCOUNTER → 2017-04-12 | Outpatient (CLI) | payer OTHER | LOC: BRMIMAGING 09:10 | PROVIDERS: ATTEND Internal Medicine Rheumatology | DX: Z13.820 Encounter for screening for osteoporosis (principal); M85.80 Other specified disorders of bone density and structure, unspecified site; Z78.0 Asymptomatic menopausal state ==